=== PATIENT | female | born 1955 | race Caucasian/White ===

== ENCOUNTER 2017-08-04 03:53 | Inpatient (IN) | payer OTHER ==
[~2017-08-04] VITALS: Ht 152.4 cm; Wt 73.7 kg
[~2017-08-04 03:53] MED LIST: ASPIRIN EC81 M1 PO; AUGMENTIN 875 M1 TAB PO; BENICAR40 M1 PO; BENICAR40 MG PO; CLOBETASOL0.05 %/60 TOP; CRESTOR 10MG10 MG PO; CRESTOR10 M1 PO; GLUCOPHAGE850 MG PO; LANSOPRAZOLE30 M2 PO; LEVOTHYROXINE25 MCG PO; LEXAPRO 10MG10 MG PO; LEXAPRO10 M1 PO; METFORMIN HCL500 M3 PO; PERCOCET 325 MG1 TA2 PO; PREVACID 30MG30 MG PO; PREVACID15 MG PO; VITAMIN B-121000 MC3 PO; VITAMIN D1000 UNIT PO; VITAMIN D250000 UNIT PO; ZOFRAN ODT4 MG PO
[2017-08-04 16:35] VITALS: BP 118/64
[2017-08-04 16:54] VITALS: BP 118/64
[2017-08-04 20:00] VITALS: BP 120/62
[2017-08-04 20:25] VITALS: BP 120/62
[2017-08-05] VITALS (9 sets, daily range): BP systolic 98–120; BP diastolic 60–72
--- NOTE | 2017-08-05 10:45 | Operative Report ---
Operative/Inv Procedure Report Surgery Date: 08/04/17 Name of Procedure: Bilateral oophorectomy with lysis of adhesions Pre-Operative Diagnosis: Left ovarian cyst Post-Operative Diagnosis: Same, adhesions Estimated Blood Loss: less than 50ml Surgeon/Hemp Fiber Taker Off: Nael No MD Anesthesia: general endotracheal tube Operative/Procedure Note Note: The patient was brought to the operating room placed on the OR table in the dorsal supine position. She was given adequate general anesthesia and successfully intubated. Anesthesia performed a tabs block at this point Venodyne boots were placed on the lower extremities and activated and a Ambriz catheter was inserted to the bladder. The abdomen was prepped and draped in usual sterile fashion. A mini Pfannenstiel incision incision was made with the scalpel taken down to the layer of the fascia. The fascia was nicked in the midline and extended bilaterally. The peritoneal cavity was entered bluntly. Omental adhesions were noted to the anterior peritoneum and these were dissected. An O'Paul-O'Mendoza retractor was placed and the abdominal field and the intestines were packed away using moistened laparotomy pads. The left ovary was noted to be approximately 6-7 cm in size adherent to the left pelvic sidewalls. There was one sagittal not solid nodule noted. Using blunt dissection the ovary was freed from the wall and elevated with a [place] clamp. 2 great duct clamps were placed on the pedicle and this ovary was transected and sent to pathology. The pedicle was oversewn using 0 Polysorb in a running locking fashion. Attention was then paid to the right ovary which looked normal. Was grasped with a Bridget clamp and 2 great duct clamps were placed on the pedicle the ovary was excised and sent to pathology. 0 Polysorb was used in the for hemostasis. The abdomen and pelvis were copiously irrigated and suture lines were noted to be hemostatic. Rosibel coagulant powder was placed on the surgical sites and the instruments removed as well as the packing. The fascia was reapproximated with 0 Polysorb in a running nonlocking fashion. Subcutaneous tissues were irrigated and coagulated were needed and the skin was closed using venessa. A dry sterile dressing was applied to the wound the patient was awakened and sent to recovery in good condition. All needle, sponge, and instrument counts were correct at the end of the procedure 2.
[2017-08-05 11:47] LABS: ABSOLUTE BASOPHIL COUNT 0 /CUMM (0.0-0.2); ABSOLUTE EOSINOPHIL COUNT 0 /CUMM (0.0-0.7); ABSOLUTE GRANULOCYTE CT 10.8 /CUMM (1.4-6.5); ABSOLUTE LYMPH COUNT 1.3 /CUMM (1.2-3.4); ABSOLUTE MONOCYTE COUNT 1.1 /CUMM (0.10-0.60); BASOPHIL % 0.3 % (0.0-2.0); EOSINOPHIL % 0 % (0-5); GRANULOCYTE % 81.7 % (42.2-75.2); HEMATOCRIT 36.7 % (37-47); MEAN CORPUSCULAR HGB 29.1 PG (27.0-31.0); MEAN CORPUSCULAR HGB CONC 33.3 G/DL (33.0-37.0); MEAN CORPUSCULAR VOLUME 87.5 FL (81.0-99.0); MEAN PLATELET VOLUME 8.5 FL (7.4-10.4); PLATELET COUNT 259 /CUMM (130-400); RBC DISTRIBUTION WIDTH 13.4 % (11.5-14.5); WHITE BLOOD CELL COUNT 13.3 /CUMM (4.8-10.8)
--- NOTE | 2017-08-06 03:32 | PN- General Surgery ---
Subjective Subjective: NO C/O Review of Systems: POS FLATUS Objective Vital Signs and I&Os Vital Signs Date Time Temp Pulse Resp B/P B/P Pulse O2 O2 Flow FiO2 Mean Ox Delivery Rate 08/05 2206 98.3 65 20 118/62 94 Room Air 08/058 97.8 08/05 1456 98.0 62 16 120/72 97 08/05 1030 98.6 61 18 100/70 95 08/05 0735 98.0 60 20 98/70 96 Room Air 08/05 0600 97.5 65 18 102/60 08/05 0600 97.5 65 18 102/60 94 Room Air 08/05 0353 97.7 63 20 110/60 08/05 0353 97.7 63 20 110/60 94 Room Air Intake & Output 08/06 0800 08/06 0000 08/05 1600 08/05 0800 08/05 0000 08/04 1600 Intake Total 450 800 400 380 Output Total 250 948 804 0751 Balance 200 500 -150 -620 Intake, IV 40 20 Intake, Oral 450 800 360 360 Output, Urine 250 370 443 0499 Patient 162 lb Weight Weight Reported by Patient Measurement Method Physical Exam: INCISION C/D/I EXT NT Assessment/Plan Assessment/Plan S/P BSO POD 2 STABLE DISCHARGE LATER TODAY Problem List: 1. Ovarian cyst Core Measures Venous Thromboembolism VTE Risk Factors Surgery No Mechanical VTE Prophylaxis d/t N/A MechProphylax Ordered No VTE Pharm Prophylaxis d/t Bleeding (Active)
[2017-08-06 06:53] VITALS: BP 110/60
[2017-08-06] MEDS ORDERED: PERCOCET 5-3251 EACH PO (07:15)
[2017-08-06] MEDS ORDERED: IBUPROFEN800 M1 PO (07:15)
== END 2017-08-06 10:27 | DRG 743 ==
LOC: SDA 03:53 → 2NA 03:53 → ENTRNSPT 11:28 → EDTRNSPT 11:33 → EDTRNSPTSTS 11:33 → CMPTRNSPT 11:51 → ENRESERV 14:10 → 2NA 16:24 → ENPENDDIS 08-06 08:24 → 2NA 08-06 10:27
PROVIDERS: Obstetrics & Gynecology
PROC: 0UT20ZZ Resection of Bilateral Ovaries, Open Approach (ICD-10-PCS; principal; 2017-08-04)
PROC: 3E0T3BZ Introduction of Anesthetic Agent into Peripheral Nerves and Plexi, Percutaneous Approach (ICD-10-PCS; 2017-08-04)
DX: D27.1 Benign neoplasm of left ovary (principal); E11.9 Type 2 diabetes mellitus without complications; D27.0 Benign neoplasm of right ovary; I10 Essential (primary) hypertension; K21.9 Gastro-esophageal reflux disease without esophagitis; Z79.84 Long term (current) use of oral hypoglycemic drugs
CPT/HCPCS: 2NAP; 87086; 88305; C9399; J0131; J0690; J1170; J2250; J2405; J3010